=== PATIENT | male | born 1935 | race Caucasian/White ===

== ENCOUNTER 2021-10-05 08:47 | Outpatient (CLI) | payer MEDICARE, OTHER, SELFPAY ==
[2021-10-05 10:23] LABS: PSA Screen* 0.43 ng/mL (0.10-4.00)
== END 2021-10-05 08:48 | disposition home or self-care (01) ==
LOC: LAB 08:50
PROVIDERS: PCP Internal Medicine; Visit Provider Radiology Therapeutic Radiology
DX: C61 Malignant neoplasm of prostate (principal)
CPT/HCPCS: 36415; 84153

== ENCOUNTER 2021-11-17 16:05 | Outpatient (CLI) | payer MEDICARE, OTHER, SELFPAY ==
[2021-11-17 10:54] LABS: Chloride* 107 mmol/L (96-114); Sodium* 141 mmol/L (135-149)
[2021-11-17 10:57] LABS: Blood Urea Nitrogen* 19 mg/dL (7-30); Carbon Dioxide* 29 mmol/L (20-32); Cholesterol* 154 mg/dL (90-199); Creatinine* 0.9 mg/dL (0.5-1.5); Estimated Glomerular Filt Rate 83 ml/min; Glucose* 111 mg/dL (60-115); Triglycerides* 94 mg/dL (40-149)
[2021-11-17 10:58] LABS: Calcium* 8.9 mg/dL (8.4-10.6); HDL Cholesterol* 56 mg/dL (>=40); LDL Cholesterol Calculated 79 mg/dL (<100)
[2021-11-17 11:48] LABS: Vitamin B12* 409 pg/mL (243-894)
== END 2021-11-17 16:06 | disposition home or self-care (01) ==
PROVIDERS: PCP Internal Medicine; Visit Provider Internal Medicine
DX: E53.8 Deficiency of other specified B group vitamins (principal); I10 Essential (primary) hypertension
CPT/HCPCS: 80048; 80061; 82607

== ENCOUNTER 2021-12-14 07:10 | Emergency (ER) | payer MEDICARE, OTHER, SELFPAY ==
--- NOTE | 2021-12-14 07:15 | ED.GENADULT ---
HPI - General Adult General Time Seen by Provider: 07:16 Date Seen: 12/14/21 Chief complaint: Fall/Minor Trauma Stated complaint: Fall/left wrist injury Time Seen by Provider: 12/14/21 07:15 History of Present Illness HPI narrative: Enio is 86-year-old male past medical history includes atrial flutter on chronic anticoagulation with Eliquis, status post ablation [facility] 6 month TIA, vitamin B12 deficiency, prostate cancer, presents emergency department with a left wrist injury. patient states that he was playing pickleball yesterday around 9:00 a.m., patient is right-handed, he lost his balance falling to his left on an outstretched hand. patient was a physical therapist for 40 years, he evaluated himself, he was able to move it with no difficulty. Pain and swelling progressively got worse throughout the day, he has been taking aspirin for it. H, e also landed on the left side hitting his left ribs, no difficulty with breathing, pain is minimal compared to his wrist. He also has some bruising on his left hip, he has no difficulty with ambulation, there was some bruising there. Patient denies any head injury or loss of consciousness, he was doing well prior to the fall. No other concerns at this time. Related Data Home Medications Medication Instructions Recorded Confirmed albuterol sulfate 90 mcg/actuation 1-2 inhalation .Q4-6H Prn 11/22/21 11/22/21 aerosol inhaler aspirin 81 mg tablet,delayed 81 mg PO QDAY 11/22/21 11/22/21 release cyanocobalamin (vitamin B-12) 1,000 mcg PO DAILY 11/22/21 11/22/21 1,000 mcg tablet,extended release Previous Rx's Medication Instructions Recorded apixaban 5 mg tablet 5 mg PO BID #180 tabs 11/22/21 lisinopril 5 mg tablet 5 mg PO QDAY #90 tabs 11/22/21 metoprolol succinate 25 mg 25 mg PO DAILY #90 tabs 11/22/21 tablet,extended release 24 hr simvastatin 20 mg tablet 20 mg PO QPM #90 tabs 11/22/21 Allergies Allergy/AdvReac Type Severity Reaction Status Date / Time penicillin V Allergy Severe Bronchospasm, Verified 12/14/21 07:26 rash Review of Systems Status of ROS: Reports: 10 or more systems reviewed and unremarkable except as noted in History and below [facility] Surgical History Dupuytren's contracture (08/05/12) History of basal cell carcinoma of skin History of bilateral inguinal hernia repair (11/29/11) History of tonsillectomy and adenoidectomy (11/29/11) Social History Smoking Status: Never smoker Do you use any of these nicotine containing products: None Second hand tobacco smoke exposure: No How often do you have a drink containing alcohol: 4 or more times a week How many standard drinks containing alcohol do you have on a typical day: 1 or 2 How often do you have six or more drinks on one occasion: Never AUDIT-C Alcohol total score: 4 Non-prescribed substance use: denies use Little interest or pleasure in doing things: not at all Feeling down, depressed, or hopeless: not at all service: No Exam Narrative: Exam Narrative: General: no obvious distress sitting comfortably HEENT: head is atraumatic, pupils equal round and reactive to light., extraocular muscles intact Neck: supple, full range of motion, nontender to palpation cervical spine lungs: clear to auscultation bilaterally heart: normal sinus rhythm S1-S2 muscle skeletal: left wrist: swelling and bruising distal radius and ulna, tender to palpation distal radius and ulna, patient can actively extend and flex with pain, patent radial pulses, normal median, ulna, radial and anterior interosseous motor nerve function. left chest wall: tender to palpation the left lower lateral and posterior rib area, no bruising, no step-offs left lateral proximal thigh: mild ecchymosis, internal-external rotation normal, active extension and flexion of the left hip with no difficulty, CMS intact abdomen: soft, nontender in all quadrants, bowel sounds normal neuro: alert awake and oriented x3, gait within normal limits Const: Vital Signs, click to edit/add: Vital Signs - 24 hr 12/14/21 07:17 12/14/21 07:29 12/14/21 08:41 Temperature 98.8 F Pulse Rate [Pulse Oximeter] 93 85 77 Respiratory Rate 20 20 18 Blood Pressure [Ri ght Upper Arm] 137/105 H 148/71 H Pulse Oximetry 95 93 94 Oxygen Delivery Me thod Room Air Room Air Room Air Course Course Hospital Course: 7:15 AM: AIDET performed. vitals are normal, workup will include, XR left wrist three views, XR ribs left and PA and lateral, suspect contusion with worsening symptoms based on patient's history of being on anticoagulation, will rule out fracture. For pain [place] 5-325 mg 2 tablets. Differential diagnosis include but are not limited to fracture, sprain, contusion, dislocation, vascular damage, nerve damage, ligament damage, tendon damage and other etiologies. Reevaluation(s) Reevaluation #1: patient was updated on his imaging results, XR left wrist three views showed osteopenia without definite evidence of fracture. Moderate diffuse soft tissue swelling. XR Chest and ribs left, no acute fracture mild atelectasis left lung base. Patient is feeling better after above care given, thumb spica splint applied, RICE instructions given, he should follow up with his primary care provider over the next 7-10 days. return precautions given. Time: 08:50 Vital Signs Vital signs: Initial Vital Signs Temperature Source Temporal Artery Scan 12/14/21 07:17 Pulse Rate 93 12/14/21 07:17 Pulse Rhythm 12/14/21 07:17 Respiratory Rate 20 12/14/21 07:17 Blood Pressure Position Supine 12/14/21 07:17 Pulse Oximetry 95 12/14/21 07:17 Oxygen Delivery Method 12/14/21 07:17 Vital Signs Pulse Rate 93 12/14/21 07:17 Respiratory Rate 20 12/14/21 07:17 Pulse Oximetry 95 12/14/21 07:17 Oxygen Delivery Method 12/14/21 07:17 Temperature 98.8 F 12/14/21 07:29 Pulse Rate 77 12/14/21 08:41 Respiratory Rate 18 12/14/21 08:41 Blood Pressure 148/71 H 12/14/21 08:41 Pulse Oximetry 94 12/14/21 08:41 Oxygen Delivery Method 12/14/21 08:41 Discharge Plan Discharge Clinical Impression: Rib injury, Chronic anticoagulation, Injury of left wrist Patient Disposition: Home, Self-Care Condition: Improved Instructions: Contusion in Adults (ED), R.I.C.E. Treatment (ED) Additional Instructions: To follow-up with a primary care provider over the next 7-10 days for ER followup and recheck, considerations for further imaging if no improvement with symptoms. He should continue with Tylenol 1 gram every 4-6 hours for pain. Activity Level: Activity as Tolerated Prescriptions: No Action cyanocobalamin (vitamin B-12) 1,000 mcg tablet extended release 1,000 mcg PO DAILY albuterol sulfate 90 mcg/actuation HFA aerosol inhaler 1-2 inhalation .Q4-6H Prn simvastatin 20 mg tablet 20 mg PO QPM Qty: 90 3RF lisinopril 5 mg tablet 5 mg PO QDAY Qty: 90 3RF metoprolol succinate 25 mg tablet extended release 24 hr 25 mg PO DAILY Qty: 90 3RF apixaban 5 mg tablet 5 mg PO BID Qty: 180 3RF aspirin 81 mg tablet,delayed release (DR/EC) 81 mg PO QDAY Follow Up/Referrals: Maddy Crowley MD [Primary Care Provider] - Stand Alone Forms: [employer] Info Instructions
[2021-12-14 07:17] VITALS: PULSE 93; RESP 20; O2SAT 95; BMI 26.1
--- NOTE | 2021-12-14 07:22 | CRLHL7_ITS ---
For Patients: As a result of the Century Cures Act, medical imaging exams and procedure reports are released immediately into your electronic medical record. You may view this report before your referring provider. If you have questions, please contact your health care provider. Indication: Fall Technique: Three views Comparison: None Findings: Bones: Osteopenia without definite evidence of fracture. 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 Soft tissues: Moderate diffuse soft tissue swelling. Dictated by Anatoliy Cabrales MD @ 12/14/2021 8:41:43 AM (Electronically Signed)
--- NOTE | 2021-12-14 07:22 | CRLHL7_ITS ---
For Patients: As a result of the Cures Act, medical imaging exams and procedure reports are released immediately into your electronic medical record. You may view this report before your referring provider. If you have questions, please contact your health care provider. INDICATION: Fall, left posterior lateral injury. TECHNIQUE: Chest and left ribs 3 views. COMPARISON: Chest x-ray 08/01/2018 FINDINGS: Cardiovascular and mediastinum: Heart size and vasculature are normal in caliber and appearance. Mediastinum is within normal limits. Lungs and pleural spaces: No pleural effusion or pneumothorax. Minimal apical pleural parenchymal scarring. Discoid atelectasis left lung base. Bones and soft tissues: No definite evidence of fracture. IMPRESSION: No evidence of fracture or pneumothorax. Mild discoid atelectasis left lung base. Dictated by Anatoliy Cabrales MD @ 12/14/2021 8:47:28 AM (Electronically Signed)
[2021-12-14 07:29] VITALS: BP 137/105; PULSE 85; RESP 20; TEMP 37.1; O2SAT 93
[2021-12-14] MEDS: HYDROCODONE-ACETAMIN 5-325 MG 1 TAB PO ×2 (07:36→08:39)
[2021-12-14 08:41] VITALS: BP 148/71; PULSE 77; RESP 18; O2SAT 94
== END 2021-12-14 09:10 | disposition home or self-care (01) ==
PROVIDERS: Emergency Provider Student in an Organized Health Care Education/Training Program; PCP Internal Medicine
DX: M25.532 Pain in left wrist (principal); R07.81 Pleurodynia; Z79.01 Long term (current) use of anticoagulants; W19.XXXA Unspecified fall, initial encounter
CPT/HCPCS: 71101; 73110; 99283; 99284; A9270

== ENCOUNTER 2022-11-20 07:45 | Outpatient (CLI) | payer MEDICARE, OTHER, SELFPAY | END 2022-11-20 07:46 | disposition home or self-care (01) | LOC: NFLDREF 11-22 11:26 | PROVIDERS: PCP Internal Medicine; Referring Provider Internal Medicine; Visit Provider Internal Medicine | DX: E53.8 Deficiency of other specified B group vitamins (principal); I10 Essential (primary) hypertension; Z86.73 Personal history of transient ischemic attack (TIA), and cerebral infarction without residual deficits; Z85.46 Personal history of malignant neoplasm of prostate | CPT/HCPCS: 80048; 80061; 82607; 84153 ==

== ENCOUNTER 2023-02-11 08:17 | Inpatient (IN) | payer MEDICARE, OTHER, SELFPAY ==
[2023-02-11] VITALS (22 sets, daily range): BP systolic 113–150; BP diastolic 65–83; PULSE 63–95; RESP 18–24; TEMP 36.4–37.1; O2SAT 88–96; BMI 25.1; BMI 25.2
--- NOTE | 2023-02-11 08:31 | ED_ITS ---
HPI - General Adult General Time Seen by Provider: 08:31 Date Seen: 02/11/23 Chief complaint: Shortness of Breath/Dyspnea Stated complaint: Shortness of breath , chest pain Time Seen by Provider: 02/11/23 08:24 Source: patient and RN notes reviewed Mode of arrival: ambulatory Limitations: no limitations History of Present Illness HPI narrative: This 87-year-old gentleman is coming in with concern of shortness of breath, coughing of productive sputum. He states about a month ago he came down with cold symptoms and is just never really kicked it. About 2 weeks ago felt like he was worsening again, cough more productive. He has maybe had an occasional chill but no documented fever. He has had no chest pain but is feeling short of breath. He has had a couple nights worries had to sleep in the recliner due to his respiratory symptoms. He does have some underlying asthma, thinks he last used his albuterol either early this morning or late last night. He has noticed no swelling, absolutely no chest pain. He is anticoagulated with Eliquis. He states he is most interested in getting a chest x-ray. I also note a history of atrial flutter, history of a TIA and history of seasonal allergic rhinitis, also has hypertension. Related Data Home Medications Medication Instructions Recorded Confirmed aspirin 81 mg tablet,delayed 81 mg PO QDAY 11/22/21 11/23/22 release cyanocobalamin (vitamin B-12) 1,000 mcg PO DAILY 11/22/21 11/23/22 1,000 mcg tablet,extended release Previous Rx's Medication Instructions Recorded apixaban 5 mg tablet 5 mg PO BID #180 tabs 11/22/21 albuterol sulfate 90 mcg/actuation 2 puff inhalation .Q4-6H Prn #8.5 03/24/22 aerosol inhaler grams lisinopril 5 mg tablet 5 mg PO QDAY #90 tabs 11/23/22 metoprolol succinate 25 mg 25 mg PO DAILY #90 tabs 11/23/22 tablet,extended release 24 hr simvastatin 20 mg tablet 20 mg PO QPM #90 tabs 11/23/22 Allergies Allergy/AdvReac Type Severity Reaction Status Date / Time penicillin V Allergy Severe Bronchospasm, Verified 11/23/22 08:46 rash Review of Systems Status of ROS: Reports: 6 or more systems reviewed and unremarkable except as noted in History and below PFSH PFS Surgical History History of basal cell carcinoma of skin ?Z85.828 - Personal history of other malignant neoplasm of skin (ICD-10) History of tonsillectomy and adenoidectomy (11/29/11) ?Z90.89 - Acquired absence of other organs (ICD-10) History of bilateral inguinal hernia repair (11/29/11) ?Z98.890 - Other specified postprocedural states (ICD-10) ?Z87.19 - Personal history of other diseases of the digestive system (ICD-10) Dupuytren's contracture (08/05/12) ?M72.0 - Palmar fascial fibromatosis [Dupuytren] (ICD-10) Social History What is your current living situation?: I presently have a place to live Problems where you live: declined to answer In the past 12 months, utilities in danger of being shut off: no In past 12 months, lack of transportation kept you from medical appts, meetings, work, or getting things needed for daily living: no In the past 12 mos, have been you worried that your food would run out before you had money to buy more?: never true In the past 12 mos, the food you bought just didn't last and you didn't have money to buy more?: never true Smoking Status: Former smoker Do you use any of these nicotine containing products: None Second hand tobacco smoke exposure: No How often do you have a drink containing alcohol: 4 or more times a week How many standard drinks containing alcohol do you have on a typical day: 3 or 4 How often do you have six or more drinks on one occasion: Never AUDIT-C Alcohol total score: 5 Non-prescribed substance use: denies use How often does anyone, including family, friends and others, physically hurt you : never How often does anyone, including family, friends and others, insult or talk down to you: never How often does anyone, including family, friends and others, threaten you with harm: never How often does anyone, including family, friends and others, scream or curse at you: never Little interest or pleasure in doing things: not at all Feeling down, depressed, or hopeless: not at all service: No Exam Const: Vital Signs, click to edit/add: Vital Signs - 24 hr 02/11/23 08:32 02/11/23 08:33 02/11/23 08:42 Temperature 97.6 F Pulse Rate 86 Pulse Rate [Pulse Oximeter] 95 Respiratory Rate 24 Blood Pressure Blood Pressure [Ri ght Upper Arm] 150/83 H Pulse Oximetry 91 92 90 Oxygen Delivery Me thod Room Air Oxygen Flow Rate 02/11/23 08:52 02/11/23 09:00 02/11/23 09:02 Temperature Pulse Rate 85 80 81 Pulse Rate [Pulse Oximeter] Respiratory Rate Blood Pressure 122/68 Blood Pressure [Ri ght Upper Arm] Pulse Oximetry 94 90 88 Oxygen Delivery Me thod Oxygen Flow Rate 02/11/23 09:03 02/11/23 09:04 02/11/23 09:15 Temperature Pulse Rate 79 78 Pulse Rate [Pulse Oximeter] Respiratory Rate Blood Pressure Blood Pressure [Ri ght Upper Arm] Pulse Oximetry 88 93 94 Oxygen Delivery Me thod Nasal Cannula Nasal Cannula Oxygen Flow Rate 3 3 02/11/23 09:30 02/11/23 09:31 02/11/23 09:32 Temperature Pulse Rate 74 75 77 Pulse Rate [Pulse Oximeter] Respiratory Rate Blood Pressure 113/65 Blood Pressure [Ri ght Upper Arm] Pulse Oximetry 92 93 94 Oxygen Delivery Me thod Nasal Cannula Nasal Cannula Nasal Cannula Oxygen Flow Rate 3 3 3 02/11/23 09:45 Temperature Pulse Rate 74 Pulse Rate [Pulse Oximeter] Respiratory Rate Blood Pressure Blood Pressure [Ri ght Upper Arm] Pulse Oximetry 93 Oxygen Delivery Me thod Nasal Cannula Oxygen Flow Rate 3 Cele is an 87-year-old male that is alert, interactive, no apparent distress. He is able to speak in complete sentences. Sclera clear, face atraumatic. Speech is normal. Neck is supple, no jugular venous distension, no cervical adenopathy. Lungs have somewhat distant breath sounds, prolonged expiratory phase with some diffuse and expiratory wheezing, overall sounds tight. CV with regular rate and rhythm, no murmur, normal S1 and S2. Abdomen is soft, nondistended, nontender, no organomegaly. He has absolutely no lower extremity edema. He was ambulatory into the ED of his own accord. Documenting provider has reviewed patient's vital signs: yes Course Course ED Course: 87-year-old male with history of asthma with acute bronchospasm and respiratory symptoms. This certainly could be a new viral URI, pneumonia, asthma flare. Will be getting a chest x-ray, he will get a DuoNeb, will be monitored on pulse oximetry. Will get labs including basic metabolic panel, CBC, C reactive protein, lactate and point of care troponin. He is not currently hypoxic. Will see how he responds to the DuoNeb. Have discussed with him that he will likely need some steroids, will see if antibiotics are indicated after this evaluation. We are also doing the triple viral swab. Reevaluation(s) Time of Reevaluation #1: 09:05 Reevaluation #1: At rest after duoneb, patient is at 88% oxygen saturation per nursing; feel that the duoneb did improve patient, was at 95% during the neb. Will place on oxygen and order prednisone 40mg orally. Time of Reevaluation #2: 09:15 Reevaluation #2: Patient does feel improved after the DuoNeb, lung sounds are much more prominent, has diffused and expiratory wheezing now, has improved aeration/air flow. He is on 3 L nasal cannula oxygen and when resting is just at 90-91%. Discuss the chest x-ray findings. He is going to need some supportive care with supplemental oxygen until antibiotics and prednisone are improving his lung function. Will be talking to the hospitalist. Consultations Consultation #1: Have reviewed patient with the hospitalist Dr. Aguilar, she accepts patient. She would prefer routine antibiotic coverage for CAP; thus, have ordered Rocephin and azithromycin. Time: 09:20 Vital Signs Vital signs: Initial Vital Signs Pulse Oximetry 91 02/11/23 08:32 Vital Signs Pulse Oximetry 91 02/11/23 08:32 Temperature 97.6 F 02/11/23 08:33 Pulse Rate 74 02/11/23 09:45 Respiratory Rate 24 02/11/23 08:33 Blood Pressure 113/65 02/11/23 09:31 Pulse Oximetry 93 02/11/23 09:45 Oxygen Delivery Method Nasal Cannula 02/11/23 09:45 Oxygen Flow Rate 3 02/11/23 09:45 Medications Administered Medications: Discontinued Medications Generic Name Dose Route Start Last Admin Trade Name Leon PRN Reason Stop Dose Admin Albuterol/Ipratropium 1 neb 02/11/23 08:31 02/11/23 08:45 Iprat-Albut 0.5-2.5 Mg/3 Ml Neb IH 02/11/23 08:32 1 neb ONCE ONE Administration Azithromycin 500 mg 02/11/23 09:20 02/11/23 09:30 Azithromycin 250 Mg Tablet PO 02/11/23 09:21 500 mg ONCE ONE Administration Ceftriaxone Sodium 2 gm/ 100 mls @ 200 mls/hr 02/11/23 09:20 02/11/23 09:30 Sodium Chloride IVPB 02/11/23 09:21 200 mls/hr ONCE ONE Administration Prednisone 40 mg 02/11/23 09:04 02/11/23 09:07 Prednisone 20 Mg Tablet PO 02/11/23 09:05 40 mg ONCE ONE Administration Medical Decision Making Lab Data Lab results reviewed: Yes I reviewed the patient's lab results Labs: Lab Results 02/11/23 02/11/23 02/11/23 Range/Units 08:28 08:32 08:50 WBC 7.71 (4.50-11.00) K/uL RBC 4.77 (4.30-5.90) m/uL Hgb 14.1 (13.5-17.5) gm/dL Hct 43.0 (37.0-53.0) % MCV 90 (80-100) fL MCH 30 (26-34) pg MCHC 33 (32-36) gm/dL RDW Coeff of Gt 12.3 (11.5-15.5) % Plt Count 296 (140-440) K/uL Neut % (Auto) 72.1 H (42.0-72.0) % Lymph % (Auto) 16.1 L (20-44) % [place] % (Auto) 6.2 (0.0-11.0) % Eos % (Auto) 5.2 (0.0-7.0) % Baso % (Auto) 0.3 (0.0-3.0) % Neut # (Auto) 5.60 (1.7-7.0) K/uL Lymph # (Auto) 1.20 (0.90-2.90) K/uL [place] # (Auto) 0.50 (0.00-0.90) K/UL Eos # (Auto) 0.40 (0.00-0.50) K/uL Baso # (Auto) 0.02 (0.00-0.30) K/uL Abs Immat Gran (auto) 0.01 (0.00-0.30) K/uL Imm/Tot Granulo (auto) 0.1 % Sodium 140 (135-149) mmol/L Potassium 3.9 (3.6-5.1) mmol/L Chloride 106 (96-114) mmol/L Carbon Dioxide 23 (20-32) mmol/L Anion Gap 11 (7-15) mEq/L BUN 18 (7-30) mg/dL Creatinine 0.8 (0.5-1.5) mg/dL Estimated Creat Clear 56.04 Estimated GFR 85 ml/min Glucose 200 H (60-115) mg/dL Lactate 2.1 H (0.5-1.9) mmol/L Calcium 9.0 (8.4-10.6) mg/dL C-Reactive Protein 5.6 H (0.5-1.0) mg/dL SARS-CoV-2 (PCR) Negative SARS-CoV-2 (Negative) Influenza Type A (PCR) Negative PCR FLU A (Negative) Influenza Type B (PCR) Negative PCR FLU B (Negative) RSV (PCR) Negative PCR RSV (Negative) POC Troponin I 0.00 L (0.01-0.04) ng/ml Imaging Data Chest x-ray: Attestation: I have reviewed the pertinent imaging results. My impression: See a linear process right lung base, did compare to old chest x-ray in 2019, this is a new finding. Will await Radiology over-read. Radiologist's impression: Patient: CELE GONGAUS Facility:?[facility] Patient ID:?[id number] Site Patient ID:?[id number]. Site :?[id number] Study:?XRay Chest portable-02/11/2023 8:46:02 AM Ordering Physician:Rodrigo Delatorre Final Report: INDICATION: Cough and wheezing. COMPARISON: 14 December 2021. TECHNIQUE: One view. IMPRESSION: Mild hazy and patchy airspace opacities at the right greater lung bases may be some atelectasis or bibasilar pneumonia. Correlate with physical exam and symptoms. Pulmonary vascularity is normal. No interstitial thickening. No significant bone finding. Dictated by Clarence Bullard MD @ 02/11/2023 8:58:17 AM (Electronic Signature) Discharge Plan Discharge Clinical Impression: Community acquired pneumonia, Asthma with acute exacerbation, Hypoxia Patient Disposition: Admitted As Observation
--- NOTE | 2023-02-11 08:32 | CRLHL7_ITS ---
For Patients: As a result of the Century Cures Act, medical imaging exams and procedure reports are released immediately into your electronic medical record. You may view this report before your referring provider. If you have questions, please contact your health care provider. INDICATION: Cough and wheezing. COMPARISON: 14 December 2021. TECHNIQUE: One view. IMPRESSION: Mild hazy and patchy airspace opacities at the right greater lung bases may be some atelectasis or bibasilar pneumonia. Correlate with physical exam and symptoms. Pulmonary vascularity is normal. No interstitial thickening. No significant bone finding. Dictated by Clarence Bullard MD @ 02/11/2023 8:58:17 AM (Electronically Signed)
[2023-02-11] MEDS: IPRAT-ALBUT 0.5-2.5 MG/3 ML NEB 1 NEB IH ×2 (08:45→11:57)
[2023-02-11 09:00] LABS: Lactate* 2.1 mmol/L (0.5-1.9)
--- NOTE | 2023-02-11 09:00 | ED.NURSE ---
Pt reports feeling SOB, satting ~88% on RA. MD notified, oxygen ordered. 2L O2 NC applied, then titrated up to 3L.
[2023-02-11 09:04] LABS: Basophils Absolute Auto 0.02 K/uL (0.00-0.30); Basophils Percent Auto 0.3 % (0.0-3.0); Eosinophils Percent Auto 5.2 % (0.0-7.0); Hemoglobin* 14.1 gm/dL (13.5-17.5); Immature Granulocytes Abs Auto 0.01 K/uL (0.00-0.30); Immature Granulocytes Pct Auto 0.1 %; Lymphocytes Percent Auto 16.1 % (20-44); Mean Corpuscular HGB Conc 33 gm/dL (32-36); Mean Corpuscular Hemoglobin 30 pg (26-34); Mean Corpuscular Volume 90 fL (80-100); Monocytes Percent Auto 6.2 % (0.0-11.0); Neutrophils Percent Auto 72.1 % (42.0-72.0); Platelet Count* 296 K/uL (140-440); RDW Coefficient of Variation % 12.3 % (11.5-15.5); Red Blood Count 4.77 m/uL (4.30-5.90); White Blood Count* 7.71 K/uL (4.50-11.00)
[2023-02-11] MEDS: predniSONE 20 MG TABLET 40 MG PO (09:07)
[2023-02-11 09:09] LABS: Slide Review Reflex No
[2023-02-11 09:12] LABS: PCR FLU A Negative PCR FLU A (Negative); PCR FLU B Negative PCR FLU B (Negative); PCR RSV Negative PCR RSV (Negative)
[2023-02-11 09:16] LABS: SARS PCR* Negative SARS-CoV-2 (Negative)
[2023-02-11 09:18] LABS: Chloride* 106 mmol/L (96-114); Potassium* 3.9 mmol/L (3.6-5.1); Sodium* 140 mmol/L (135-149)
[2023-02-11 09:20] LABS: Creatinine* 0.8 mg/dL (0.5-1.5); Est. Creatinine Clearance* 56.04; Estimated Glomerular Filt Rate 85 ml/min
[2023-02-11 09:21] LABS: Anion Gap 11 mEq/L (7-15); Blood Urea Nitrogen* 18 mg/dL (7-30); Carbon Dioxide* 23 mmol/L (20-32); Glucose* 200 mg/dL (60-115)
[2023-02-11 09:24] LABS: C Reactive Protein* 5.6 mg/dL (0.5-1.0)
[2023-02-11] MEDS: AZITHROMYCIN 250 MG TABLET 500 MG PO (09:30)
[2023-02-11] MEDS: cefTRIAXone 2 GM in 0.9 % SODIUM CHLORIDE Mini-bag 100 ML IVPB (09:30)
--- NOTE | 2023-02-11 10:56 | RESP.RT ---
PEP with Aerobika, information, instruction, patient did excellent forceful exhalation with good chest shake. Had patient feel chest shake, understands use of Aerobika, and states so. IS with patient good effort with float in good position, 2500 on ed. Both IS and PEP promoted excellent forceful moist congested, nonproductive cough. Discussed with Patient use of Home MDI with extension. Patient understands and states so, Extension given to patient.
[2023-02-11 11:44] LABS: Hemoglobin A1C* 5.6 % (0-5.6)
[2023-02-11 11:50] LABS: Lactate Sepsis w/Reflex* 1.2 mmol/L (0.5-1.9)
[2023-02-11] MEDS: ALBUTEROL SULFATE 2.5 MG/3 ML VIAL.NEB NEB (11:57)
--- NOTE | 2023-02-11 12:36 | RESP.RT ---
Nebulizer treatment given with DuoNeb, then Albuterol following with Aerobika in line both Nebs. Patient did treatment well with occasional large sigh breath. Pre treatment; BBS with wheezing noted all live, greater in bases. Post treatment wheezing still noted, but not as predominate prior to Nebs. More air movement was also noted post treatment. Patient comfortable, walked to bathroom on room air without difficulty.
[2023-02-11] MEDS: MAGNESIUM IV 2 GM/50 ML PIGGYBACK IVPB (12:44)
[2023-02-11] MEDS: 0.9 % SODIUM CHLORIDE 250 ml IV (12:44)
--- NOTE | 2023-02-11 17:07 | P.IMHP_ITS ---
Hospitalist- H&P: HPI History of Present Illness Time Seen by Provider: 11:15 Date Seen: 02/11/23 Chief complaint: Shortness of breath , chest pain Narrative: Enio Diane is a 87 year old male with history of asthma who presented through the emergency department for concerns of worsening shortness of breath and fatigue. Five weeks ago he was out with the group of friends and notice some upper respiratory symptoms the next day. He had a runny nose and a crackly voice that lasted for a few days. It then moved down into his chest and over the last 3 weeks he has had more trouble breathing and decreased endurance. He denies any fevers, chills, night sweats, or chest pain. In the last couple days he has noticed some difficulty lying flat due to increased chest congestion and nasal drainage. He has been using his albuterol inhaler 1-2 times every day but feels like things are getting worse anyway. Review of Systems Status of ROS: Reports: 10 or more systems reviewed and unremarkable except as noted in History and below [facility] Medical History (Updated 02/11/23 @ 17:23 by Charity Aguilar MD) History of prostate cancer ?Z85.46 - Personal history of malignant neoplasm of prostate (ICD-10) History of atrial flutter ?Z86.79 - Personal history of other diseases of the circulatory system (ICD- 10) History of TIA (transient ischemic attack) ?Z86.73 - Personal history of transient ischemic attack (TIA), and cerebral infarction without residual deficits (ICD-10) Vitamin B12 deficiency without anemia (2018) ?E53.8 - Deficiency of other specified B group vitamins (ICD-10) Seasonal allergic rhinitis (11/29/11) ?J30.2 - Other seasonal allergic rhinitis (ICD-10) Asthma (11/29/11) ?J45.909 - Unspecified asthma, uncomplicated (ICD-10) Essential hypertension ?I10 - Essential (primary) hypertension (ICD-10) Surgical History History of basal cell carcinoma of skin ?Z85.828 - Personal history of other malignant neoplasm of skin (ICD-10) History of tonsillectomy and adenoidectomy (11/29/11) ?Z90.89 - Acquired absence of other organs (ICD-10) History of bilateral inguinal hernia repair (11/29/11) ?Z98.890 - Other specified postprocedural states (ICD-10) ?Z87.19 - Personal history of other diseases of the digestive system (ICD-10) Dupuytren's contracture (08/05/12) ?M72.0 - Palmar fascial fibromatosis [Dupuytren] (ICD-10) Social History (Updated 02/11/23 @ 17:10 by Charity Aguilar MD) Narrative: Lives independently. Retired physical therapist. Smoked a pipe many times a day in college for about 4 years, no tobacco use since then. Drinks 1-2 glasses of wine 2 to 3 times a week and drinks 1 shot of zack each night. Denies recreational drug use. What is your current living situation?: I presently have a place to live Problems where you live: no known problems Problems where you live details: N/A In the past 12 months, utilities in danger of being shut off: no In past 12 months, lack of transportation kept you from medical appts, meetings, work, or getting things needed for daily living: no In the past 12 mos, have been you worried that your food would run out before you had money to buy more?: never true In the past 12 mos, the food you bought just didn't last and you didn't have money to buy more?: never true Highest level of school completed/degree received: Master's degree Smoking Status: Former smoker What tobacco products do you use: cigarettes Years smoked: 3 Smoking quit date/years: <= 15 years ago and pipe Do you use any of these nicotine containing products: None Nicotine containing products detail: Smoked in college for 2-3 years Second hand tobacco smoke exposure: No How often do you have a drink containing alcohol: 4 or more times a week How many standard drinks containing alcohol do you have on a typical day: 1 or 2 How often do you have six or more drinks on one occasion: Never AUDIT-C Alcohol total score: 4 Non-prescribed substance use: denies use Caffeine: Yes (1 cup coffee in am) How often does anyone, including family, friends and others, physically hurt you : never How often does anyone, including family, friends and others, insult or talk down to you: never How often does anyone, including family, friends and others, threaten you with harm: never How often does anyone, including family, friends and others, scream or curse at you: never Little interest or pleasure in doing things: not at all Feeling down, depressed, or hopeless: not at all service: No Meds Home Medications and Allergies Home Medications Medication Instructions Recorded Confirmed Type aspirin 81 mg tablet,delayed 81 mg PO QDAY 11/22/21 02/11/23 History release cyanocobalamin (vitamin B-12) 1,000 mcg PO DAILY 11/22/21 02/11/23 History 1,000 mcg tablet,extended release metoprolol succinate 25 mg 25 mg PO QPM 02/11/23 02/11/23 History tablet,extended release 24 hr Home Medication Comments: Apixaban 5 mg p.o. b.i.d. Simvastatin 20 mg p.o. nightly Lisinopril 5 mg p.o. daily Albuterol inhaler p.r.n. Allergies Allergy/AdvReac Type Severity Reaction Status Date / Time penicillin V Allergy Severe Bronchospasm, Verified 11/23/22 08:46 rash Exam Narrative: Exam Narrative: General: No acute distress. Awake alert oriented x3. Able to speak in complete sentences. HEENT: Normocephalic atraumatic, pupils equally round and reactive to light and accommodation. Oropharynx clear. Mucous membranes are moist. No cervical lymphadenopathy, thyromegaly or carotid bruits. No JVD. Cardiovascular: Regular rate and rhythm. No murmurs, gallops, or rubs. Chest: No increased work of breathing. Expiratory wheezes throughout with mildly compromised air movement, diminished in both bases. Abdomen: Bowel sounds present. Soft, nondistended, nontender. No hepatosplenomegaly or masses. Extremities: No edema, no cyanosis or clubbing. Skin: No jaundice, no pallor, no rashes. Const: Vital Signs, click to edit/add: Vital Signs - 24 hr 02/11/23 08:32 02/11/23 08:33 02/11/23 08:42 Temperature 97.6 F Pulse Rate 86 Pulse Rate [Pulse Oximeter] 95 Respiratory Rate 24 Blood Pressure Blood Pressure [Ri ght Arm] Blood Pressure [Ri ght Upper Arm] 150/83 H Pulse Oximetry 91 92 90 Oxygen Delivery Me thod Room Air Oxygen Flow Rate 02/11/23 08:52 02/11/23 09:00 02/11/23 09:02 Temperature Pulse Rate 85 80 81 Pulse Rate [Pulse Oximeter] Respiratory Rate Blood Pressure 122/68 Blood Pressure [Ri ght Arm] Blood Pressure [Ri ght Upper Arm] Pulse Oximetry 94 90 88 Oxygen Delivery Me thod Oxygen Flow Rate 02/11/23 09:03 02/11/23 09:04 02/11/23 09:15 Temperature Pulse Rate 79 78 Pulse Rate [Pulse Oximeter] Respiratory Rate Blood Pressure Blood Pressure [Ri ght Arm] Blood Pressure [Ri ght Upper Arm] Pulse Oximetry 88 93 94 Oxygen Delivery Me thod Nasal Cannula Nasal Cannula Oxygen Flow Rate 3 3 02/11/23 09:30 02/11/23 09:31 02/11/23 09:32 Temperature Pulse Rate 74 75 77 Pulse Rate [Pulse Oximeter] Respiratory Rate Blood Pressure 113/65 Blood Pressure [Ri ght Arm] Blood Pressure [Ri ght Upper Arm] Pulse Oximetry 92 93 94 Oxygen Delivery Me thod Nasal Cannula Nasal Cannula Nasal Cannula Oxygen Flow Rate 3 3 3 02/11/23 09:45 02/11/23 10:00 02/11/23 10:01 Temperature Pulse Rate 74 70 70 Pulse Rate [Pulse Oximeter] Respiratory Rate Blood Pressure 122/76 Blood Pressure [Ri ght Arm] Blood Pressure [Ri ght Upper Arm] Pulse Oximetry 93 93 92 Oxygen Delivery Me thod Nasal Cannula Nasal Cannula Nasal Cannula Oxygen Flow Rate 3 3 3 02/11/23 10:44 02/11/23 10:51 02/11/23 11:10 Temperature 97.9 F Pulse Rate Pulse Rate [Pulse Oximeter] 72 Respiratory Rate 22 20 22 Blood Pressure Blood Pressure [Ri ght Arm] 147/69 H Blood Pressure [Ri ght Upper Arm] Pulse Oximetry 91 94 96 Oxygen Delivery Me thod Nasal Cannula Nasal Cannula Nasal Cannula Oxygen Flow Rate 2 2 2 02/11/23 12:33 02/11/23 16:45 Temperature 98.7 F Pulse Rate Pulse Rate [Pulse Oximeter] 78 Respiratory Rate 20 18 Blood Pressure Blood Pressure [Ri ght Arm] 135/78 Blood Pressure [Ri ght Upper Arm] Pulse Oximetry 95 93 Oxygen Delivery Me thod Nasal Cannula Nasal Cannula Oxygen Flow Rate 2 2 Hospitalist - H&P: Result Labs Labs: Short CBC 02/11/23 Range/Units 08:50 WBC 7.71 (4.50-11.00) K/uL Hgb 14.1 (13.5-17.5) gm/dL Hct 43.0 (37.0-53.0) % Plt Count 296 (140-440) K/uL BMP 02/11/23 08:50 Sodium 140 Potassium 3.9 Chloride 106 Carbon Dioxide 23 BUN 18 Creatinine 0.8 Glucose 200 H Calcium 9.0 Ordering Physician: Nandini Field M.D. Date of Service: 02/11/23 Procedure(s): XR chest 1V portable Accession Number(s): [id number] cc: Maddy Crowley M.D.; Nandini Field M.D.~ For Patients: As a result of the Cures Act, medical imaging exams and procedure reports are released immediately into your electronic medical record. You may view this report before your referring provider. If you have questions, please contact your health care provider. INDICATION: Cough and wheezing. COMPARISON: 14 December 2021. TECHNIQUE: One view. IMPRESSION: Mild hazy and patchy airspace opacities at the right greater lung bases may be some atelectasis or bibasilar pneumonia. Correlate with physical exam and symptoms. Pulmonary vascularity is normal. No interstitial thickening. No significant bone finding. Dictated by Clarence Bullard MD @ 02/11/2023 8:58:17 AM (Electronically Signed) Assessment and Plan Assessment and plan (1) Acute respiratory failure: Problem comment: - Hypoxemic, secondary to pneumonia and asthma exacerbation. - Give oxygen supplementation to keep O2 sats greater than 90% Status: Acute (2) Asthma with acute exacerbation: Problem comment: - he was started prednisone orally in the emergency department which I will continue daily for total of 5 days. - continue p.r.n. nebs - since he remains tight and with expiratory wheezes after nebs even emergency department, I will also give magnesium 2 g over 20 minutes IV. Status: Acute (3) Community acquired pneumonia: Problem comment: - continue Rocephin and azithromycin started in the emergency department. - if he is able to wean off oxygen overnight, he may level to go home tomorrow on oral medications. Status: Acute (4) Essential hypertension: Problem comment: Continue home medications Status: Chronic (5) History of atrial flutter: Problem comment: - Dxed 02/20, apixaban, metoprolol, and diltiazem started 02/20, s/p flutter ablation ([facility]) 06/10/21 - continue apixaban and metoprolol Status: Acute (6) History of TIA (transient ischemic attack): Problem comment: - 11/11, statin/aspirin/eileen inhibitor started 11/11 - continue home medications Status: Chronic
--- NOTE | 2023-02-11 18:28 | PC.NURSE ---
Patient admitted from ER this afternoon. Patient pleasant, alert and oriented. Ambulates independently. Tolerated regular diet. Denies any SOB or pain. O2 sats 93% on 2 LPM O2 via NC. Crackles and expiratory wheezes heard throughout all lung live. Daughter and Sydnee (significant other) visited.
[2023-02-11] MEDS: APIXABAN 5 MG TABLET PO (20:29)
[2023-02-11] MEDS: SIMVASTATIN 20 MG TABLET PO (20:29)
[2023-02-11] MEDS: METOPROLOL SUCCINATE (XL) 25 MG TAB PO (20:30)
[2023-02-11] MEDS: SODIUM CHLORIDE 0.9 % (FLUSH) 10 ML SYRINGE 5 ML IVF (20:30)
[2023-02-12 00:15] VITALS: BP 145/91; PULSE 70; RESP 20; TEMP 36.6; O2SAT 95
[2023-02-12 04:00] VITALS: BP 131/69; PULSE 65; RESP 18; TEMP 36.6; O2SAT 95
[2023-02-12 06:14] LABS: Basophils Absolute Auto 0.02 K/uL (0.00-0.30); Basophils Percent Auto 0.2 % (0.0-3.0); Eosinophils Absolute Auto 0.04 K/uL (0.00-0.50); Eosinophils Percent Auto 0.4 % (0.0-7.0); Hematocrit 40.5 % (37.0-53.0); Immature Granulocytes Abs Auto 0.02 K/uL (0.00-0.30); Immature Granulocytes Pct Auto 0.2 %; Lymphocytes Percent Auto 15.4 % (20-44); Mean Corpuscular HGB Conc 32 gm/dL (32-36); Mean Corpuscular Hemoglobin 29 pg (26-34); Mean Corpuscular Volume 91 fL (80-100); Monocytes Percent Auto 8.9 % (0.0-11.0); Neutrophils Percent Auto 74.9 % (42.0-72.0); Platelet Count* 294 K/uL (140-440); RDW Coefficient of Variation % 12.4 % (11.5-15.5); Red Blood Count 4.44 m/uL (4.30-5.90); White Blood Count* 8.94 K/uL (4.50-11.00)
[2023-02-12 06:18] LABS: Slide Review Reflex No
[2023-02-12 06:23] LABS: Chloride* 110 mmol/L (96-114); Sodium* 144 mmol/L (135-149)
[2023-02-12 06:24] LABS: Potassium* 4.7 mmol/L (3.6-5.1)
[2023-02-12 06:26] LABS: Creatinine* 0.7 mg/dL (0.5-1.5); Est. Creatinine Clearance* 56.04; Estimated Glomerular Filt Rate 89 ml/min
[2023-02-12 06:27] LABS: Anion Gap 8 mEq/L (7-15); Blood Urea Nitrogen* 19 mg/dL (7-30); Calcium* 8.9 mg/dL (8.4-10.6); Carbon Dioxide* 26 mmol/L (20-32); Glucose* 127 mg/dL (60-115)
[2023-02-12 06:30] LABS: C Reactive Protein* 4.1 mg/dL (0.5-1.0)
[2023-02-12 07:00] VITALS: BP 137/76; PULSE 65; PULSE 66; RESP 20; TEMP 36.3; O2SAT 93
--- NOTE | 2023-02-12 07:01 | PC.NURSE ---
Shift note: 0.5L O2 via NC sats 91-93%. Non productive moist cough, up independently in the room. No c/o pain, afebrile
[2023-02-12] MEDS: ALBUTEROL SULFATE 2.5 MG/3 ML VIAL.NEB NEB ×2 (08:04→16:09)
[2023-02-12] MEDS: APIXABAN 5 MG TABLET PO ×2 (08:31→22:29)
[2023-02-12] MEDS: AZITHROMYCIN 250 MG TABLET PO (08:31)
[2023-02-12] MEDS: predniSONE 20 MG TABLET 40 MG PO (08:31)
[2023-02-12] MEDS: lisinopriL 5 MG TABLET PO (08:31)
[2023-02-12] MEDS: cefTRIAXone 2 GM in 0.9 % SODIUM CHLORIDE Mini-bag 100 ML IVPB (08:32)
[2023-02-12] MEDS: CYANOCOBALAMIN (VITAMIN B-12) 500 MCG TABLET 1000 MCG PO (08:32)
[2023-02-12] MEDS: SODIUM CHLORIDE 0.9 % (FLUSH) 10 ML SYRINGE 5 ML IVF ×2 (08:32→22:29)
[2023-02-12] MEDS: ASPIRIN 81 MG TABLET EC PO (08:32)
[2023-02-12 11:00] VITALS: BP 153/74; PULSE 78; RESP 20; TEMP 36.8; O2SAT 91
[2023-02-12] MEDS: 0.9 % SODIUM CHLORIDE 250 ml IV (11:01)
[2023-02-12 15:00] VITALS: BP 134/89; PULSE 66; PULSE 78; PULSE 80; RESP 20; O2SAT 94
--- NOTE | 2023-02-12 16:02 | PM.IMPN1 ---
Progress Note: A&P Assessment and plan (1) Acute respiratory failure: Problem details: - Hypoxemic, secondary to pneumonia and asthma exacerbation. - Oxygen supplementation to keep O2 sats greater than 90%. May be able to wean off today. Will do trial. Status: Acute (2) Asthma with acute exacerbation: Problem details: - Continue prednisone daily for total of 5 days. - Got magnesium upon getting to floor yesterday. - continue p.r.n. nebs - Was still tight with poor air movement this morning and still on oxygen when I saw him. Keep in hospital yet tonight. Expect he may be able to discharge home tomorrow if able to wean off oxygen and better air movment. Status: Acute (3) Community acquired pneumonia: Problem details: - continue Rocephin and azithromycin started in the emergency department. Status: Acute (4) Essential hypertension: Problem details: Continue home medications Status: Chronic Plan VTE risk low as patient is ambulatory. Encourage frequent walks as able. Subjective Time Seen by Provider: 07:46 Date Seen: 02/12/23 Interval history: Don feels a bit better today. He was still on oxygen when I saw him this morning, but he was satting low 90's. Exam Narrative: Exam Narrative: General: No acute distress. Awake alert oriented. Able to speak in complete sentences. Cardiovascular: Regular rate and rhythm. No murmurs, gallops, or rubs. Chest: No increased work of breathing. Tight, poor air movement. I went back to reassess after he had a neb and he had expiratory wheezes throughout, no crackles. Abdomen: Bowel sounds present. Soft, nondistended, nontender. Extremities: No edema. Const: Vital Signs, click to edit/add: Vital Signs - 24 hr 02/11/23 16:45 02/11/23 19:00 02/11/23 23:00 Temperature 98.7 F 98.1 F Pulse Rate [Bilate ral Radial] Pulse Rate [Pulse Oximeter] 78 80 63 Respiratory Rate 18 18 18 Blood Pressure [Ri ght Arm] 135/78 142/78 H Pulse Oximetry 93 93 Oxygen Delivery Me thod Nasal Cannula Nasal Cannula Oxygen Flow Rate 2 2 02/11/23 23:00 02/12/23 04:00 02/12/23 07:00 Temperature 98 F 98 F 97.4 F L Pulse Rate [Bilate ral Radial] 66 Pulse Rate [Pulse Oximeter] 63 65 Respiratory Rate 18 18 20 Blood Pressure [[facility]] 131/77 131/69 137/76 Pulse Oximetry 93 95 93 Oxygen Delivery Me thod Nasal Cannula Nasal Cannula Room Air Oxygen Flow Rate 1 1 02/12/23 07:00 02/12/23 11:00 02/12/23 15:00 Temperature 98.3 F Pulse Rate [Bilate ral Radial] 66 66 Pulse Rate [Pulse Oximeter] 65 78 78 Respiratory Rate 20 20 20 Blood Pressure [[facility] Arm] 153/74 H Pulse Oximetry 91 Oxygen Delivery Me thod Room Air Oxygen Flow Rate Labs Labs: Laboratory Results - last 24 hr 02/12/23 05:40 WBC 8.94 RBC 4.44 Hgb 13.0 L Hct 40.5 MCV 91 MCH 29 MCHC 32 RDW Coeff of Gt 12.4 Plt Count 294 Neut % (Auto) 74.9 H Lymph % (Auto) 15.4 L [place] % (Auto) 8.9 Eos % (Auto) 0.4 Baso % (Auto) 0.2 Neut # (Auto) 6.70 Lymph # (Auto) 1.40 [place] # (Auto) 0.80 Eos # (Auto) 0.04 Baso # (Auto) 0.02 Abs Immat Gran (auto) 0.02 Imm/Tot Granulo (auto) 0.2 Sodium 144 Potassium 4.7 Chloride 110 Carbon Dioxide 26 Anion Gap 8 BUN 19 Creatinine 0.7 Estimated Creat Clear 56.04 Estimated GFR 89 Glucose 127 H Calcium 8.9 C-Reactive Protein 4.1 H
--- NOTE | 2023-02-12 17:05 | PC.NURSE ---
End of Shift Note: Patient has been up in his room indep. Did take a nap this afternoon for the most part has been off oxygen. when he woke from his nap his pulse ox was low. Re applied oxygen per nc at 2L and sats were in the low 90's. Has received a albuterol neb x2 to help with his exp wheeze. Will continue to monitor.
[2023-02-12] MEDS: SIMVASTATIN 20 MG TABLET PO (17:36)
[2023-02-12] MEDS: METOPROLOL SUCCINATE (XL) 25 MG TAB PO (17:36)
[2023-02-12 20:15] VITALS: BP 142/94; PULSE 77; RESP 20; TEMP 36.6; O2SAT 95
[2023-02-13 04:30] VITALS: BP 148/80; PULSE 63; RESP 16; TEMP 36.7; O2SAT 96
--- NOTE | 2023-02-13 07:32 | PC.NURSE ---
Nursing note, [id number]: Uneventful night. Pt A&Ox3, pleasant and cooperative. Vitals stable, pt weaned to RA sating 94% currently, some noted HTN, initial diastolic being 91 improved to 80 at recheck. Pt afebrile, denies pain. Up ind in room, voiding without issue. Pt states last BM 02/12. Pt uses call light appropriately, has within reach.
[2023-02-13] MEDS: predniSONE 20 MG TABLET 40 MG PO (08:10)
[2023-02-13] MEDS: ALBUTEROL SULFATE 2.5 MG/3 ML VIAL.NEB NEB (08:10)
[2023-02-13 08:15] VITALS: BP 150/98; PULSE 66; RESP 20; TEMP 36.4; O2SAT 94
[2023-02-13 08:17] VITALS: RESP 20
--- NOTE | 2023-02-13 08:55 | P.DS_ITS ---
DS: Providers Provider Time Seen by Provider: 08:07 Date Seen: 02/13/23 Date of admission: 02/12/23 12:16 Primary care physician: Maddy Crowley MD Admitting Clinician: Charity Aguilar MD Consults: 02/11/23 11:16 Consult to Respiratory Therapy [CONS] Routine Comment: Reason(s) for RT Consult:: Consult New COPD/Asthma Diag Attending Physician on discharge: Charity Aguilar MD Date of Discharge: 02/13/23 DS: Diagnosis Discharge Diagnosis (1) Acute respiratory failure: Status: Resolved Problem details: - Hypoxemic, secondary to pneumonia and asthma exacerbation. - Required oxygen supplementation to keep O2 sats greater than 90% initially. Has been off oxygen for 24 hours at the time of discharge. (2) Asthma with acute exacerbation: Status: Acute Problem details: - Continue prednisone daily for a total of 7 days and have patient f/u with PCP later this week to determine if he will need a longer course. - Got magnesium upon getting to floor on day of admission. - continue nebs for homegoing (3) Community acquired pneumonia: Status: Acute Problem details: - He is improving. Has gotten rocephin/azithromycin. Recommend a 5 day course of antibiotics. F/u with PCP this week. (4) History of atrial flutter: Status: Acute Problem details: - Dxed 02/20, apixaban, metoprolol, and diltiazem started 02/20, s/p flutter ablation ([facility]) 06/10/21 - continue apixaban and metoprolol (5) Essential hypertension: Status: Chronic Problem details: Continue home medications DS: Summary Hospital Course Hospital Course: 87 y/o male with h/o asthma who came in with worsening SOB and a URI that had moved into his chest. He's had 5 weeks of symptoms. Mild pneumonia on CXR, suspect community acquired. Got rocephin/azithromycin here and will transition to vantin/azithro for total of 5 days. Has been on prednisone burst for asthma. He also got dose of magnesium on the first hospital day. Planning 7 day burst of prednisone with reevaluation by PCP before the end of that burst. Time Spent with Patient Time attestation: Total time spent providing and/or coordinating discharge services: Exam Narrative: Exam Narrative: General: No acute distress. Awake alert oriented. Able to speak in complete sentences. Cardiovascular: Regular rate and rhythm. No murmurs, gallops, or rubs. Chest: No increased work of breathing. Good air movement today with scattered, but improved expiratory wheezes. No crackles. Abdomen: Bowel sounds present. Soft, nondistended, nontender. Extremities: No edema. Const: Vital Signs, click to edit/add: Vital Signs - 24 hr 02/12/23 11:00 02/12/23 15:00 02/12/23 15:00 Temperature 98.3 F Pulse Rate [Bilate ral Radial] 66 Pulse Rate [Pulse Oximeter] 78 78 80 Respiratory Rate 20 20 20 Blood Pressure [Ri ght Arm] 153/74 H 134/89 Pulse Oximetry 91 94 Oxygen Delivery Me thod Room Air Nasal Cannula Oxygen Flow Rate 2 02/12/23 20:15 02/13/23 04:30 02/13/23 08:15 Temperature 98 F 98.1 F 97.5 F L Pulse Rate [Bilate ral Radial] 66 Pulse Rate [Pulse Oximeter] 77 63 66 Respiratory Rate 20 16 20 Blood Pressure [Ri ght Arm] 142/94 H 148/80 H 150/98 H Pulse Oximetry 95 96 94 Oxygen Delivery Me thod Nasal Cannula Room Air Room Air Oxygen Flow Rate 2 0 02/13/23 08:17 Temperature Pulse Rate [Bilate ral Radial] Pulse Rate [Pulse Oximeter] Respiratory Rate 20 Blood Pressure [Ri ght Arm] Pulse Oximetry Oxygen Delivery Me thod Oxygen Flow Rate DS: Data Data Completed and Pending Completed studies during hospitalization: Ordering Physician: Nandini Field M.D. Date of Service: 02/11/23 Procedure(s): XR chest 1V portable Accession Number(s): [id number] cc: Maddy Crowley M.D.; Nandini Field M.D.~ For Patients: As a result of the 21st Century Cures Act, medical imaging exams and procedure reports are released immediately into your electronic medical record. You may view this report before your referring provider. If you have questions, please contact your health care provider. INDICATION: Cough and wheezing. COMPARISON: 14 December 2021. TECHNIQUE: One view. IMPRESSION: Mild hazy and patchy airspace opacities at the right greater lung bases may be some atelectasis or bibasilar pneumonia. Correlate with physical exam and symptoms. Pulmonary vascularity is normal. No interstitial thickening. No significant bone finding. Dictated by Clarence Bullard MD @ 02/11/2023 8:58:17 AM (Electronically Signed) Discharge Plan Discharge Disposition: Home, Self-Care Date of Admission: 02/12/23 12:16 Attending Provider on Discharge: Charity Aguilar Primary Care Provider: Maddy Crowley Condition: Improved Anticipated Discharge Date/Time: 02/13/23 09:06 Discharge Medications: New prednisone 20 mg Tablet 40 mg PO DAILYWM 4 Days Qty: 8 0RF azithromycin 250 mg Tablet 250 mg PO Q24H 2 Days Qty: 2 0RF Taper: Z-HARIS 250 mg Q24H for 2 Days and 0 Hour Rx Instructions: start 11/15 am cefpodoxime 200 mg tablet 200 mg PO BID 2 Days Qty: 4 0RF Rx Instructions: must administer with a meal/food start 1115 am albuterol sulfate 2.5 mg /3 mL (0.083 %) Solution For Nebulization 2.5 mg NEB QID 5 Days Qty: 20 0RF Continued cyanocobalamin (vitamin B-12) 1,000 mcg tablet extended release 1,000 mcg PO DAILY apixaban 5 mg tablet 5 mg PO BID Qty: 180 3RF aspirin 81 mg tablet,delayed release (DR/EC) 81 mg PO QDAY lisinopril 5 mg tablet 5 mg PO QDAY Qty: 90 3RF simvastatin 20 mg tablet 20 mg PO QPM Qty: 90 3RF metoprolol succinate 25 mg tablet extended release 24 hr 25 mg PO QPM albuterol sulfate 90 mcg/actuation HFA aerosol inhaler 2 puff inhalation .Q4-6H Prn Qty: 8.5 3RF Discharge Orders: Discharge Order (Routine); Ordered 02/13/23 Ordered By: Charity Aguilar Patient Education: Asthma (DC) Activity Level: Activity as Tolerated Discharge Diet: Regular Follow Up Appointments: Maddy Crowley MD [Primary Care Provider] - ( or Sunday) Forms: [facility] Info Instructions
[2023-02-13] MEDS: APIXABAN 5 MG TABLET PO (08:58)
[2023-02-13] MEDS: CYANOCOBALAMIN (VITAMIN B-12) 500 MCG TABLET 1000 MCG PO (08:59)
[2023-02-13] MEDS: lisinopriL 5 MG TABLET PO (08:59)
[2023-02-13] MEDS: cefTRIAXone 2 GM in 0.9 % SODIUM CHLORIDE Mini-bag 100 ML IVPB (09:00)
[2023-02-13] MEDS: ASPIRIN 81 MG TABLET EC PO (09:00)
[2023-02-13] MEDS: AZITHROMYCIN 250 MG TABLET PO (09:01)
[2023-02-13] MEDS: SODIUM CHLORIDE 0.9 % (FLUSH) 10 ML SYRINGE 5 ML IVF (09:01)
--- NOTE | 2023-02-13 09:46 | RESP.RT ---
Patient has been instructed on home nebulizer machine. Patient was able to verbalize back the proper setup, use and caring for equipment.
== END 2023-02-13 12:08 | disposition home or self-care (01) | DRG 193 ==
LOC: ED 09:23 → MEDSURG 10:09
PROVIDERS: Admitting Provider Family Medicine; Emergency Provider Family Medicine; PCP Internal Medicine; Visit Provider Family Medicine
DX: J18.9 Pneumonia, unspecified organism (principal); J96.01 Acute respiratory failure with hypoxia; J45.901 Unspecified asthma with (acute) exacerbation; I10 Essential (primary) hypertension; Z86.73 Personal history of transient ischemic attack (TIA), and cerebral infarction without residual deficits
CPT/HCPCS: 36415; 71045; 80048; 83036; 83605; 84484; 85025; 86140; 87631; 94640; 94664; 94761; 99284; A9270; G0378; J0696; J3475; J7050; J7512

== ENCOUNTER 2023-11-23 07:30 | Outpatient (CLI) | payer MEDICARE, OTHER, SELFPAY ==
--- OUTSIDE RECORDS SUMMARY | 2023-11-30 09:09 | XMS_ITS | Clinical Summary ---
Author Organization [facility] Address [place], [place] [address] Care Team Providers Care Jewel Stringer Name Role Phone Maddy Crowley MD Primary Care Provider [phone] Destini Rodriguez AuD Unavailable [phone] Allergies Active Allergy Reactions Criticality Noted Date Comments Penicillins Rash 10/29/2007 Medications Medication Sig Dispensed Refills Start Date End Date Status albuterol HFA (PRO-AIR; VENTOLIN; PROVENTIL) 90 mcg/actuation inhaler INHALE 1 TO 2 PUFFS BY MOUTH EVERY 4 TO 6 HOURS NEEDED 03/10/2021 Active Eliquis 5 mg tablet Take 5 mg by mouth 2 times daily. 03/21/2021 Active lisinopriL (PRINIVIL; ZESTRIL) 5 mg tablet Take 5 mg by mouth once daily. 02/01/2021 Active simvastatin (ZOCOR) 20 mg tablet Take 20 mg by mouth at bedtime. 02/01/2021 Active cyanocobalamin (VITAMIN B12) 100 mcg tablet Take 100 mcg by mouth. Active metoprolol succinate (TOPROL XL) 25 mg Sustained-Release tabletIndications:Typ ical atrial flutter (HC) Take 1 Tablet (25 mg) by mouth once daily. 90 Tablet 2 09/21/2021 Active Active Problems Problem Noted Date Diagnosed Date Atrial flutter 05/06/2021 SOB (shortness of breath) 05/06/2021 Sensorineural hearing loss, bilateral 08/07/2012 Wheezing 10/29/2007 Screening for lipoid disorders 10/29/2007 Special screening for malignant neoplasm of pros [place] 10/29/2007 Immunizations Name Administration Dates Next Due AMB Influenza, IIV4 PF (=>6 mos Flulaval,Fluzone Fluarix)(Flu Clinic Only) 01/30/2019 Influenza, IIV3 (Age >=3 years) 12/15/2008 Family History Medical History Relation Name Comments Cancer Paternal Grandmother ? cance r Other Paternal Grandmother fr om the cancer above at a young age Other Sister at Other Other both parents di ed in their mid-90's, maternal grandfather at age 105 Relation Name Status Comments Paternal Grandmother Sister Other Social History Tobacco Use Types Packs/Day Years Used Date Smoking Tobacco: Former Smokeless Tobacco: Never Comments:Quit 60 years ago, smoked 5-7 cigs/day for 2-3 years Alcohol Use Standard Drinks/Week Comments Yes 0 (1 standard drink = 0.6 oz pur e alcohol) couple ounces daily Social Connections Answer Date Recorded Frequency of Communication with Friends and Fami ly Not on file 04/02/2021 Financial Resource Strain Answer Date R ecorded Difficulty of Paying Living Expenses Not on file 04/02/2021 Difficulty of Paying Living Expenses Not on file 04/02/2021 Sex and Gender Information Value Date Recorded Sex Assigned at Not on file Gender Identity Not on file Sexual Orientation Not on file Obstetrics History Last Filed Vital Signs Vital Sign Reading Time Taken Comments Blood Pressure 122/72 09/21/2021 10:42 AM CDT Pulse 76 09/21/2021 10:42 AM CDT Temperature 36.5 ??C (97.7 ??F) 06/10/2021 4:50 PM CS T Respiratory Rate 14 06/10/2021 4:50 PM [employer] Oxygen Saturation 96% 09/21/2021 10:42 AM CDT Inhaled Oxygen Concentration - - Weight 87.5 kg (193 lb) 09/21/2021 10:42 AM CDT Height 182.9 cm (6') 09/21/2021 10:42 AM CDT Body Mass Index 26.18 09/21/2021 10:42 AM CDT Plan of Treatment Health Maintenance Due Date Last Done Comments Tdap 1945 Depression screening for age 12+ 1946 Tetanus booster 1954 Zoster (shingles) series for age 50+ (1 of 2) 1984 Medicare Wellness for age 65+ 12/02/1999 Pneumococcal series for age 65+ (1 of 1 - PCV) 12/02/1999 BMI (ht and wt on same day) for age 18+ 09/21/2022 09/21/2021, 05/26/2021 COVID-19 vaccine series (4 - season) 2022 12/28/2020, 05/29/2020, 05/08/2020 Influenza for age 65+ 12/02/2023 01/30/2019, 009 Advance Directives * Full Code (Latest Code Status on File) Date Activated Date Inactivated Comments 06/10/2021 12:57 PM 06/10/2021 8:36 PM Question Answer Comments Code Status Discussion: Other Care Teams Jewel Stringer Relationship Specialty Start Date End Date Maddy Crowley MD [address] [place] [id number] PCP - General Internal Medicine 08/07/12 Destini Rodriguez AuD [address] [place] [id number] Audiology 08/07/12
== END 2023-11-23 07:31 | disposition home or self-care (01) ==
LOC: NFLDREF 11-30 09:07
PROVIDERS: PCP Internal Medicine; Referring Provider Internal Medicine; Visit Provider Internal Medicine
DX: I10 Essential (primary) hypertension (principal); E53.8 Deficiency of other specified B group vitamins; Z85.46 Personal history of malignant neoplasm of prostate; Z86.73 Personal history of transient ischemic attack (TIA), and cerebral infarction without residual deficits; Z12.5 Encounter for screening for malignant neoplasm of prostate
CPT/HCPCS: 80048; 80061; 82607; G0103

== ENCOUNTER 2024-08-04 09:47 | Outpatient (CLI) | payer MEDICARE, OTHER, SELFPAY ==
--- NOTE | 2024-08-04 10:00 | CRLHL7_ITS ---
For Patients: As a result of the Century Cures Act, medical imaging exams and procedure reports are released immediately into your electronic medical record. You may view this report before your referring provider. If you have questions, please contact your health care provider. Indication: Pulmonary nodule Technique: Routine noncontrast CT chest Please note that all CT scans at this facility use dose modulation, iterative reconstruction, and/or weight-based dosing when appropriate to reduce radiation dose to as low as reasonably achievable. Comparison: 02/11/2023, 07/29/2024 Findings: Ovoid density within the anterior segment left lower lobe adjacent to the fissure accounts for the radiographic density. This is consistent with round atelectasis. No suspicious pulmonary nodule. Biapical pleural-parenchymal scarring. Bronchial wall thickening in both lower lobes noted particularly on the left with adjacent reticulonodular densities. No pleural effusion or pulmonary edema. No adenopathy. Atherosclerotic changes. Simple intrahepatic cysts. Pancreatic atrophy. No vertebral body compression fracture. Impression: Chronic bilateral lower lobe bronchitis with adjacent reticulonodular scarring in the left lower lobe along with left lower lobe round atelectasis. No suspicious pulmonary nodule. Please note that all CT scans at this facility use dose modulation, iterative reconstruction, and/or weight-based dosing when appropriate to reduce radiation dose to as low as reasonably achievable. Dictated by Juan Ramon Talley MD @ 08/04/2024 1:20:53 PM (Electronically Signed)
== END 2024-08-04 09:48 | disposition home or self-care (01) ==
PROVIDERS: PCP Internal Medicine; Visit Provider Family Medicine
DX: R05.3 Chronic cough (principal); J42 Unspecified chronic bronchitis
CPT/HCPCS: 71250